=== PATIENT | male | born 1985 ===

== ENCOUNTER 2022-12-03 20:12 | Emergency (ER) | payer OTHER, MEDICAID, SELFPAY ==
[2022-12-03 20:12] VITALS: BP 139/98; PULSE 97; RESP 15; TEMP 36.9; O2SAT 96; BMI 52.0
--- NOTE | 2022-12-03 23:04 | ED_ITS ---
HPI - General Adult General Chief complaint: Extremity Problem,Nontraumatic Stated complaint: Swelling, hip pain Time Seen by Provider: 12/03/22 20:22 Source: patient Mode of arrival: Ambulatory History of Present Illness HPI narrative: 36-year-old male nonsmoker with noncontributory medical history presents with multiple complaints including low back pain and hip pain in the absence of injury. He states that he was seen and evaluated by his primary care provider and extensive workup about 1 week ago at the [facility] with lab work and imaging that was largely unremarkable. He has been having low back pain that radiates into his left lateral it for some time and has been on multiple medications including anti-inflammatory, muscle relaxers, and even gabapentin. He states gabapentin and steroids traditionally do not work and he does not currently take them. Additionally he has been having problems with his right hip and states that on occasion it seems to pop and even give out on him. He denies it his leg is weak but that is hip seems to give out on him. He denies fever or chills, direct trauma as stated, use of anticoagulants, loss of control of bowel or bladder. He states that his doctors are evaluating him for Rheumatoid arthritis. 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 He denies any systemic complaints such as dizziness, weakness or lightheadedness. He is had no fever or chills. Denies chest pain, shortness of breath or cough. He is had no nausea, vomiting or diarrhea. Denies dysuria, frequency or urgency. He denies weight gain or weight loss. He is had no medication change or dietary change Related Data Previous Rx's Medication Instructions Recorded methylprednisolone 4 mg tablets in See Rx Instructions PO .COMPLEX 12/03/22 a dose pack (Medrol (Srinivas)) #21 ea Allergies Allergy/AdvReac Type Severity Reaction Status Date / Time No Known Drug Allergies Allergy Verified 12/03/22 20:17 Review of Systems Review of Systems Narrative: GENERAL: Denies chills, fatigue, malaise, fever, sweats. HEENT: Denies sinus pain, ear pain, sore throat, difficulty swallowing, dizziness. RESPIRATORY: Denies dyspnea, cough, wheezing, hemoptysis, sputum. CARDIOVASCULAR: Denies chest pain, palpitations, orthopnea, edema, GASTROINTESTINAL: Denies nausea, vomiting, abdominal pain, diarrhea, constip ation, melena. : Denies dysuria, frequency, incontinence, hematuria, urinary retention. MUSCULOSKELETAL: See HPI SKIN: Denies rash, skin lesions, or other NEUROLOGIC: See HPI PSYCHIATRIC: No concerning psychosocial issues. 12 point review of systems is negative except for those stated above Patient History Social History Smoking Status: Unknown if ever smoked Smoking Status: Unknown if ever smoked alcohol intake frequency: holidays/special occasions only Substance Use Type: does not use Exam Narrative Exam Narrative: GENERAL: [36] year old patient appears stated age. Well-developed patient, in mild distress. HEAD: Atraumatic. Normocephalic. EYES: Pupils equal round and reactive. Extraocular motions intact. No scleral icterus. No injection or drainage. ENT: Nose without bleeding, purulent drainage. Throat without erythema, tonsillar hypertrophy or exudate. Airway patent. NECK: Trachea midline. Non tender CARDIOVASCULAR: Regular rate and rhythm without murmurs, gallops, or rubs. RESPIRATORY: Clear to auscultation. Breath sounds equal bilaterally. No wheezes, rales, or rhonchi. GASTROINTESTINAL: Abdomen soft, non-tender, nondistended. EXTREMITIES: No edema or joint tenderness. Increased numbness of fingers of right hand with Phalen's and Tinel's BACK: dynamo tender but free of any obvious external abnormalities. Patient exam notes decreased range of motion and muscle spasm, but no CVA tenderness, or vertebral point tenderness. There are no symptoms of cauda equina such as saddle anesthesia, and decreased reflexes, decreased sensation or strength. NEURO: AOx3. SKIN: No rash or erythema of visible areas Initial Vital Signs Initial Vital Signs: Vital Signs Temperature 98.5 F 12/03/22 20:12 Pulse Rate 97 H 12/03/22 20:12 Respiratory Rate 15 12/03/22 20:12 Blood Pressure 139/98 H 12/03/22 20:12 Pulse Oximetry 96 12/03/22 20:12 Oxygen Delivery Method Room Air 12/03/22 20:12 Course Vital Signs Vital signs: Vital Signs - 8 hr 12/03/22 20:12 12/03/22 23:57 Temperature 98.5 F Pulse Rate 97 H 72 Respiratory Rate 15 Blood Pressure 139/98 H 144/76 H Pulse Oximetry 96 95 Oxygen Delivery Method Room Air Room Air Medical Decision Making MDM Narrative Medical decision making narrative: [36] year old patient presents with back pain, hip pain, finger numbness Multiple etiologies for patient's symptoms considered including, but not limited to: [Lumbar radiculopathy, cauda equina, labral injury, arthritis vs. other] Prior Charts reviewed in our EMR Primary Historian: patient Labs reviewed and interpreted by myself: We had extensive discussion today at the bedside whether another round of labs given the full complement that he just had would be indicated. He was able to access his MyChart and reviewed his labs including CBC, CMP, inflammatory markers which were all very reassuring. After discussion of risks and benefits we elected to hold off on more labs today. Imaging reviewed: Again likely above we had shared decision-making and reviewed risks and benefits, pros and cons of repeat imaging. He is had no change in his symptoms and no traumatic injury in there were no findings on recent x-rays that were reviewed on his MyChart. We elected to hold off on imaging for today. Patient has multiple, widespread complaint without any significant change. His history and physical exam are reassuring and there are no indications of any surgical emergencies or diagnoses requiring a specific or immediate intervention. We did discuss repeating labs and imaging but elected to hold off per our discussions noted above. Is low back and left hip pain are most likely consistent with a lumbar radiculopathy, there are no signs of cauda equina such as lower extremity weakness, depressed reflexes, loss of bowel or bladder. I encouraged him to increase his routine dosing of anti-inflammatories and wrote a prescription for a Medrol Dosepak. He states that previously gabapentin did not work for him so another prescription was not written. His right hip popping and giving out on occasion raises question of a possible labral injury. We discussed appropriate imaging available in the emergency department at this time and agree that x-ray or even CT are not likely to change the outcome. He understands that pursuit of MRI through his primary care provider is most likely to be helpful. Return precautions discussed Findings and discharge diagnosis discussed with patient/family followed by verbalization of understanding Return precautions discussed with patient/family whom verbalize understanding of diagnosis and plan Discharge Plan Departure Patient Disposition: Home Clinical Impression: Acute carpal tunnel syndrome, Acute hip pain Instructions: DI for Carpal Tunnel Syndrome Activity Restrictions/Additional Instructions: *You have been diagnosed with [ Carpal tunnel of your right wrist, likely lumbar radiculopathy and right hip pain possibly related to labral injury. As we discussed your history and physical exam are very reassuring, you just had a mina y thorough workup including labs and imaging and we sure the opinion that there is little To add by repeating these tests tonight *What to do: *Please continue to take your regular medications as directed. [x ] New medication prescriptions sent to your pharmacy: [ [facility]] [ ] New medication written as a paper prescription [ ] No new medications given *Please follow up with your primary care provider in 2-3 days, call for an appointment. Let them know you were seen in the Emergency Department and that we ask that you be seen in follow up. We will electronically transmit a record of today's note if your PCP is in our system *Return to Emergency Department if you should have any new, worsening or concerning symptoms, such as [fever greater than 101 F, shaking chills, worsening pain, persistent vomiting or other bothersome symptoms] Prescriptions: New methylprednisolone [Medrol (Srinivas)] 4 mg tablets,dose pack See Rx Instructions .ROUTE .COMPLEX Qty: 21 0RF Rx Instructions: orally per package directions Referrals: Renetta Lopez ARNP [Primary Care Provider] - Stand Alone Forms: Patient Portal/API
[2022-12-03 23:57] VITALS: BP 144/76; PULSE 72; O2SAT 95
== END 2022-12-03 23:40 | disposition home or self-care (01) ==
PROVIDERS: Emergency Provider Emergency Medicine; PCP Nurse Practitioner Family
DX: G56.00 Carpal tunnel syndrome, unspecified upper limb (principal); M25.551 Pain in right hip
CPT/HCPCS: 99281